=== PATIENT | male | born 1980 | race Caucasian/White ===

== ENCOUNTER 2018-02-15 19:06 | Emergency (ER) | payer OTHER ==
[2018-02-15] MEDS ORDERED: NORMAL SALINE 1000 ML 1,000 ML IV ONE (19:35)
[2018-02-15] MEDS ORDERED: NORMAL SALINE 1000 ML 1,000 ML IV PRN (19:35)
--- NOTE | 2018-02-15 19:36 | ER Document Report ---
ED Medical Screen (RME) - General Chief Complaint: Chest Pain Stated Complaint: CHEST PAIN Time Seen by Provider: 02/15/18 19:34 Notes: 38 years old male was staying in their apartment the whole day sweating because no AC, presents with multiple complaints including body aches throughout the whole body chest pain, nauseous, did not throw up. General malaise and feeling weak. Denies any left arm numbness tingling sensation palpitation. Denies any abdominal pain diarrhea dysuria frequency urgency. TRAVEL OUTSIDE OF THE [place] IN LAST 30 DAYS: No - Related Data Allergies/Adverse Reactions: No Known Allergies Allergy (Unverified 02/15/18 19:07) Physical Exam - Vital signs Vitals: Temp Pulse Resp BP Pulse Ox 98.4 F 94 17 134/79 H 99 02/15/18 19:09 02/15/18 19:09 02/15/18 19:09 02/15/18 19:09 02/15/18 19:09 Course - Vital Signs Vital signs: Temp Pulse Resp BP Pulse Ox 98.4 F 99 16 134/77 H 99 02/15/18 19:24 02/15/18 19:24 02/15/18 19:24 02/15/18 19:24 02/15/18 19:24
[2018-02-15 20:23] LABS: ABSOLUTE BASOPHILS # (AUTO) 0.1 10^3/uL (0.0-0.2); ABSOLUTE EOSINOPHILS # (AUTO) 0.3 10^3/uL (0.0-0.6); ABSOLUTE MONOCYTES (AUTO) 0.6 10^3/uL (0.1-1.4); ABSOLUTE NEUT (AUTO) 5.2 10^3/uL (1.7-8.2); HEMATOCRIT 44.9 % (37.9-51.0); HEMOGLOBIN 15.5 g/dL (13.5-17.0); LYMPHOCYTES % (AUTO) 24.4 % (13-45); MEAN CORPUSCULAR HEMOGLOBIN 29.6 pg (27.0-33.4); MEAN CORPUSCULAR HGB CONC 34.7 g/dL (32.0-36.0); MEAN CORPUSCULAR VOLUME 85 fl (80-97); MONOCYTES % (AUTO) 7.2 % (3-13); PLATELET COUNT 360 10^3/uL (150-450); RED BLOOD COUNT 5.25 10^6/uL (4.35-5.55); RED CELL DISTRIBUTION WIDTH 13.6 % (11.5-14.0); SEGMENTED NEUTROPHILS % (AUTO) 63.4 % (42-78); TOTAL CELLS COUNTED % (AUTO) 100 %; WHITE BLOOD COUNT 8.2 10^3/uL (4.0-10.5)
[2018-02-15 20:43] LABS: ALANINE AMINOTRANSFERASE 87 U/L (21-72); ALBUMIN 3.9 g/dL (3.5-5.0); ALKALINE PHOSPHATASE 112 U/L (38-126); ANION GAP 9 (5-19); ASPARTATE AMINO TRANSFERASE 81 U/L (17-59); BILIRUBIN,DIRECT 0.4 mg/dL (0.0-0.4); BILIRUBIN,TOTAL 0.4 mg/dL (0.2-1.3); BLOOD UREA NITROGEN 7 mg/dL (7-20); CALCIUM 8.9 mg/dL (8.4-10.2); CARBON DIOXIDE 32 mmol/L (22-30); CHLORIDE 102 mmol/L (98-107); CREATINE KINASE 86 U/L (55-170); GLUCOSE 109 mg/dL (75-110); POTASSIUM 4.1 mmol/L (3.6-5.0); SODIUM 142.5 mmol/L (137-145); TOTAL PROTEIN 7.9 g/dL (6.3-8.2)
[2018-02-15 20:55] LABS: CREATINE KINASE MB 0.76 ng/mL (<4.55)
[2018-02-15 20:57] LABS: TROPONIN I < 0.012 ng/mL
--- NOTE | 2018-02-15 22:22 | ER Document Report ---
ED General - General Chief Complaint: Chest Pain Stated Complaint: CHEST PAIN Time Seen by Provider: 02/15/18 19:34 Mode of Arrival: Ambulatory Information source: Patient Notes: Patient is an otherwise healthy 38-year-old male who presents with chief complaint of chest pain, neck pain, low back pain cramping in his calves. Patient reports he has been in the heat all day and also has no air- conditioning in his home. Patient feels like he is dehydrated. Patient describes the pain as non-radiating pain across his entire chest. Patient denies any nausea, vomiting or any other associated symptoms. TRAVEL OUTSIDE OF THE [place] IN LAST 30 DAYS: No - Related Data Allergies/Adverse Reactions: No Known Allergies Allergy (Unverified 02/15/18 19:07) Past Medical History - Social History Smoking Status: Current Every Day Smoker Frequency of alcohol use: None Drug Abuse: None Family History: Reviewed & Not Pertinent Patient has suicidal ideation: No Patient has homicidal ideation: No Renal/ Medical History: Denies: Hx Peritoneal Dialysis Physical Exam - Vital signs Vitals: Temp Pulse Resp BP Pulse Ox 98.4 F 94 17 134/79 H 99 02/15/18 19:09 02/15/18 19:09 02/15/18 19:09 02/15/18 19:09 02/15/18 19:09 - Notes Notes: PHYSICAL EXAMINATION: GENERAL: Well-appearing, well-nourished and in no acute distress. HEAD: Atraumatic, normocephalic. EYES: Pupils equal round and reactive to light, extraocular movements intact, sclera anicteric, conjunctiva are normal. ENT: Nares patent, oropharynx clear without exudates. Moist mucous membranes. NECK: Normal range of motion, supple without lymphadenopathy LUNGS: Breath sounds clear to auscultation bilaterally and equal. No wheezes rales or rhonchi. HEART: Regular rate and rhythm without murmurs ABDOMEN: Soft, nontender, nondistended abdomen. No guarding, no rebound. No masses appreciated. Musculoskeletal: Normal range of motion, no pitting or edema. No cyanosis. NEUROLOGICAL: Cranial nerves grossly intact. Normal speech, normal gait. Normal sensory, motor exams PSYCH: Normal mood, normal affect. SKIN: Warm, Dry, normal turgor, no rashes or lesions noted. Course - Re-evaluation Re-evalutation: Initial workup was ordered by provider in triage. CBC is unremarkable. Comprehensive metabolic panel reveals mildly elevated AST and ALT. Cardiac enzymes are negative. Patient was given IV fluids. Patient reports he is feeling much improved after administration of IV fluids and denies any chest pain. Patient declines to stay for repeat troponin. Patient given strict ED return precautions, patient agrees to return to emergency department if he develops chest pain again or any other symptoms that are concerning to him. - Vital Signs Vital signs: Temp Pulse Resp BP Pulse Ox 98.4 F 99 18 129/86 H 100 02/15/18 19:24 02/15/18 19:24 02/15/18 22:35 02/15/18 22:35 02/15/18 22:35 - Laboratory Result Diagrams: 02/15/18 20:00 02/15/18 20:00 Laboratory results interpreted by me: 02/15/18 20:00 Carbon Dioxide 32 H AST 81 H ALT 87 H Discharge - Discharge Clinical Impression: Chest pain Qualifiers: Chest pain type: unspecified Qualified Code(s): R07.9 - Chest pain, unspecified Condition: Stable Disposition: HOME, SELF-CARE Additional Instructions: Chest Wall Pain Your chest pain has been diagnosed as coming from the chest wall. This is often caused by straining the muscles or joints in the chest during physical activity, direct trauma, coughing, or vigorous vomiting. Persons with arthritis are especially prone to this type of pain, due to inflammation of the cartilage joints near the breast bone. Occasionally, no cause can be found. Rest from strenuous physical activity. This kind of chest pain is usually made worse by movement of the chest. Depending on the symptoms, we may prescribe medicine for pain, muscle relaxation, and antiinflammatory effects. If the pain is new, and seems to be due to muscle strain, cold packs can help. Otherwise, apply gentle warmth to the painful area for 15 minutes every hour or two. You should contact the doctor immediately if things change. Further evaluation is needed if you develop a fever or cough, if the nature of the pain changes, or if you become short of breath. You were seen today for chest pain. The exact cause of your pain is unclear. However, based on your cardiac enzyme testing, and EKG it does not appear that it is from an immediately life-threatening cause at this time. Although your testing here is normal is critical that you follow-up with your primary care physician for continued evaluation of this chest pain and possible stress testing. I recommended you see your physician within the next 24-48 hours to be evaluated for consideration of a stress test. Please return to emergency department immediately if you have worsening of your chest pain, shortness of breath, vomiting, become unable to exert yourself due to pain or difficulty breathing, you pass out, or have any pain that radiates into your arms, jaw, or back. Please also return if you have any additional symptoms that are concerning to you.
[2018-02-15 22:43] VITALS: BP 129/86
--- NOTE | 2018-02-16 07:40 | EKG REPORT ---
SEVERITY:- BORDERLINE ECG - SINUS TACHYCARDIA PROBABLE LEFT ATRIAL ABNORMALITY : Confirmed by: Dat Eastman MD 16-Feb-2018 07:39:08
== END 2018-02-15 22:43 | disposition home or self-care (01) ==
LOC: ER 19:06
DX: R07.9 Chest pain, unspecified (principal); M54.2 Cervicalgia; M54.5 Low back pain; R25.2 Cramp and spasm; F17.200 Nicotine dependence, unspecified, uncomplicated; R74.0 Nonspecific elevation of levels of transaminase and lactic acid dehydrogenase [LDH]
CPT/HCPCS: 93005; 99285; 96360; 36415; 82553; 82550; 85025; 80053; 84484; 93010; J7030

== ENCOUNTER 2018-07-17 23:05 | Emergency (ER) | payer OTHER ==
[2018-07-18] MEDS ORDERED: ONDANSETRON 4 MG TAB.RAPDIS PO ONE (01:54)
[2018-07-18] MEDS ORDERED: CLONIDINE HCL 0.1 MG TABLET PO ONE (02:35)
[2018-07-18] MEDS ORDERED: DICYCLOMINE HCL 20 MG TABLET PO ONE (02:35)
--- NOTE | 2018-07-18 02:41 | ER Document Report ---
ED General - General Chief Complaint: Possible Overdose Stated Complaint: WEAKNESS Time Seen by Provider: 07/17/18 23:45 Mode of Arrival: Medic Information source: Patient, [employer] TRAVEL OUTSIDE OF THE [place] IN LAST 30 DAYS: No - HPI Patient complains to provider of: Nausea and withdrawal Onset: Other - 38-year-old male that presents for evaluation of heroin withdrawal symptoms last used earlier this morning is trying to abstain from heroin use notes that he is got nausea abdominal pain feels shaky. 's never tried to detox before does not have any known health problems. Denies any other issues at this time. - Related Data Allergies/Adverse Reactions: No Known Allergies Allergy (Unverified 02/15/18 19:07) Past Medical History - General Information source: Patient, [employer] - Social History Smoking Status: Current Every Day Smoker Family History: Reviewed & Not Pertinent Patient has suicidal ideation: No Patient has homicidal ideation: No Renal/ Medical History: Denies: Hx Peritoneal Dialysis Review of Systems - Review of Systems -: Yes All other systems reviewed and negative Physical Exam - Vital signs Vitals: Temp Pulse Resp BP Pulse Ox 98.6 F 100 18 132/87 H 96 07/17/18 23:05 07/17/18 23:05 07/17/18 23:05 07/17/18 23:05 07/17/18 23:05 Interpretation: Normal - General General appearance: Appears well, Alert - HEENT Head: Normocephalic, Atraumatic Eyes: Normal Pupils: PERRL - Respiratory Respiratory status: No respiratory distress Chest status: Nontender Breath sounds: Normal Chest palpation: Normal - Cardiovascular Rhythm: Regular Heart sounds: Normal auscultation Murmur: No - Abdominal Inspection: Normal Distension: No distension Bowel sounds: Normal Tenderness: Nontender Organomegaly: No organomegaly - Back Back: Normal, Nontender - Extremities General upper extremity: Normal inspection, Nontender, Normal color, Normal ROM, Normal temperature General lower extremity: Normal inspection, Nontender, Normal color, Normal ROM, Normal temperature, Normal weight bearing. No: Sabina's sign - Neurological Neuro grossly intact: Yes Cognition: Normal Orientation: AAOx4 Agustin Coma Scale Eye Opening: Spontaneous [place] Coma Scale Verbal: Oriented Agustin Coma Scale Motor: Obeys Commands Agustin Coma Scale Total: 15 Speech: Normal Motor strength normal: LUE, RUE, LLE, RLE Sensory: Normal - Psychological Associated symptoms: Normal affect, Normal mood - Skin Skin Temperature: Warm Skin Moisture: Dry Skin Color: Normal Course - Re-evaluation Re-evalutation: This is a gentleman that presents for evaluation of heroin withdrawal symptoms. On examination he does demonstrate some tremulousness and gooseflesh, will plan for the treatment of his withdrawal symptoms with clonidine Bentyl and Zofran. Do not believe this gentleman requires any further diagnostics at this time as he has no other medical complaints. We will plan for discharge with return precautions and expectant management. - Vital Signs Vital signs: Temp Pulse Resp BP Pulse Ox 98.6 F 100 22 H 119/65 96 07/18/18 03:03 07/17/18 23:05 07/18/18 03:02 07/18/18 03:03 07/18/18 03:02 Discharge - Discharge Clinical Impression: Opioid withdrawal, Nausea Condition: Good Disposition: HOME, SELF-CARE Additional Instructions: Your seen today in the emergency department for your heroin withdrawal. You had an evaluation including a physical exam. I think that your symptoms are because of your heroin withdrawal. You have been given 3 medicines to try and help with your symptoms of your withdrawal, you been given clonidine to help with your skin crawling, you have been given Bentyl to help with your abdominal cramping, you have been given Zofran to help with your nausea. Follow-up with your doctor in the next week for help with this, return in case of any worsening fevers or chills. Inability to eat or drink. Prescriptions: Clonidine HCl [Catapres] 0.1 mg PO DAILY #30 tablet Dicyclomine HCl [Bentyl 20 mg Tablet] 20 mg PO QID #40 tablet Ondansetron [Zofran Odt 4 mg Tablet] 1 - 2 tab PO Q4H PRN #15 tab.rapdis PRN Reason: For Nausea/Vomiting Forms: Smoking Cessation Education
[2018-07-18 05:43] VITALS: BP 121/74
== END 2018-07-18 05:43 | disposition home or self-care (01) ==
LOC: ER 23:05
DX: F11.23 Opioid dependence with withdrawal (principal); R11.0 Nausea; T40.1X1A Poisoning by heroin, accidental (unintentional), initial encounter; Y92.9 Unspecified place or not applicable; R53.1 Weakness; F17.200 Nicotine dependence, unspecified, uncomplicated
CPT/HCPCS: 99284; J3490; S0119